=== PATIENT | male | born 1965 | race Caucasian/White ===

== ENCOUNTER 2024-07-09 10:36 | Emergency (ER) | payer BC, SELFPAY ==
--- NOTE | ~2024-07-09 | XR_ITS ---
EXAMINATION: XR chest 2V DATE: 07/09/2024 11:32 INDICATION: Cough. Right lower lobe crackles. TECHNIQUE: Frontal and lateral views of the chest were obtained. COMPARISON: None. FINDINGS: There is no pneumonia, pleural effusion, or pneumothorax. The heart size is normal. IMPRESSION: 1. No acute cardiopulmonary disease. Reviewed, dictated and finalized at location A.
--- NOTE | 2024-07-09 10:46 | ED.GENADULT ---
HPI - General Adult General Chief complaint: Upper Respiratory Infection Stated complaint: bronchitis Time Seen by Provider: 07/09/24 10:46 Source: patient Mode of arrival: ambulatory Limitations: no limitations History of Present Illness HPI narrative: 59-year-old male patient presents to [facility] with complaints of cold-like symptoms for the past 4 days. Patient states symptoms started with a low-grade fever of about 100, body aches, chills, cough and congestion. Patient states most of the symptoms have resolved but continues to have a cough. Patient states the cough was keeping him up at night however last night was able to get some sleep and thinks that the cough is improving. patient states he is starting to feel better and last tested himself for COVID yesterday which was negative. Patient states that he has been taking Robitussin for the cough. Patient states he has had pneumonia before in the past and is concerned that he might have pneumonia or bronchitis. Denies any current fevers for the last 48 hours. Denies any chest pain. Related Data Allergies Allergy/AdvReac Type Severity Reaction Status Date / Time Sulfa (Sulfonamide AdvReac Intermediate Gastrointestinal Verified 07/09/24 11:05 Antibiotics) Upset Review of Systems Review of Systems: CONSTITUTIONAL: Denies fever, chills, or sweats. EYES: Denies visual changes, redness, or discharge. ENT: Denies rhinorrhea, congestion, sore throat, or otalgia. CARDIOVASCULAR: Denies chest pain, palpitations, or edema. RESPIRATORY: Positive cough denies dyspnea. GASTROINTESTINAL: Denies abdominal pain, nausea, vomiting, or diarrhea. GENITOURINARY: Denies dysuria or hematuria. SKIN: Denies rash or itching. MUSCULOSKELETAL: Denies back pain, joint pain, or myalgia. NEUROLOGIC: Denies headache, numbness, or weakness. PSYCHIATRIC: Denies anxiety or depression. [facility] Past Medical History Medical History (Updated 07/09/24 @ 12:01 by AMY Avila) Bronchitis Pneumonia Right arm fracture Family History Family History Father Family history of cardiovascular disease Other Family history of hypercholesterolemia Social History Social History Smoking status: Never smoker Alcohol intake: never Substance use: never Substance use type: does not use Lack of Transportation: No Lack of Food: Never True Current Housing: I Have Housing Concerned About Future Housing: No Difficulty Paying Gas/Electric Bills: No Difficulty Paying for Meds: No Currently Unemployed: No Education: Bachelor's Degree Difficulty w/ Childcare or Family Care: No Living arrangements: with family Additional living arrangements comments: Occupation/Education: occupation Gender identity (if verbalized by the patient): Male Sexual Orientation (if Verbalized by the Patient): Straight or Heterosexual Spiritual care concerns: No Comments At the time of my signature I agree with nursing past medical history, surgical, social, and family history. There is no relevant family history pertinent to the presenting complaint. Exam Narrative: GENERAL: Well-appearing, well-nourished, and in no acute distress. HEAD: Normocephalic, atraumatic. EYES: PERRLA and EOMI. ENT: Nares clear, no rhinorrhea or epistaxis. Mucous membranes moist. posterior pharynx with no erythema, tonsillar enlargement, exudates or lesions present. Some postnasal drip is noted. NECK: Supple. No lymphadenopathy CHEST: Patient has some slight crackles noted to the right lower lobe on auscultation. No respiratory distress. HEART: Regular rate and rhythm. No murmur heard. Normal peripheral pulses. ABDOMEN: Soft, nontender, nondistended, normal active bowel sounds. EXTREMITIES: Normal range of motion. No edema. SKIN: Warm, dry, no rash. NEURO: No focal deficits. Alert and orient
[2024-07-09 10:54] VITALS: BP 130/79; PULSE 89; RESP 18; TEMP 36.4; O2SAT 98
== END 2024-07-09 12:03 | disposition home or self-care (01) ==
PROVIDERS: Emergency Provider Nurse Practitioner Family; PCP Family Medicine
DX: J06.9 Acute upper respiratory infection, unspecified (principal)
CPT/HCPCS: 71046; 99213; G0463

== ENCOUNTER 2025-01-13 00:50 | Day surgery (SDC) | payer BC, SELFPAY ==
[2025-01-03 14:29] VITALS: BMI 25.8
--- OUTSIDE RECORDS SUMMARY | 2025-01-13 00:52 | XMS_ITS | Clinical Summary ---
Author Organization [facility] [facility] Address [address] [place] [id number] Care Team Providers Care Senior Technical Specialist Name Role Phone No, Physician Primary Care Provider [phone] Allergies Active Allergy Reactions Criticality Noted Date Comments Sulfa (Sulfonamide Antibiotics) Medications tadalafiL (CIALIS) 5 mg tablet Take 1 tablet (5 mg total) by mouth daily 12/24/2022 Active ibuprofen 200 mg tab/cap Take 3 tablet/caps ule (600 mg total) by mouth every 6 (six) hours as needed for pain Active Active Problems No known active problems Medical History Medical History Date Comments Neuropathy Hematuria Family History Medical History Relation Name Comments Arthritis Father Heart disease Father Hypertension Father Arthritis Mother Heart disease Mother Hypertension Mother Hypertension Other Family history of Hypertension; Osteoporosis Other Relation Name Status Comments Father Alive Mother Alive Other Social History Tobacco Use Types Packs/Day Years Used Date Smoking Tobacco: Never Smokeless Tobacco: Never Tobacco Cessation:Counseling Given: Not Answered AUDIT-C Answer Date Recorded Q1: How often do you have a drink containing alc ohol? 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 Gender Identity Not on file Sexual Orientation Not on file Obstetrics History Last Filed Vital Signs Vital Sign Reading Time Taken Comments Blood Pressure 160/105 10/28/2023 8:58 AM FIELD ASSESSOR Pulse 76 10/28/2023 8:58 AM FIELD ASSESSOR Temperature - - Respiratory Rate - - Oxygen Saturation - - Inhaled Oxygen Concentration - - Weight 90.4 kg (199 lb 6.4 oz) 10/28/2023 8:58 A M FIELD ASSESSOR Height 185.4 cm (6' 1 ) 10/28/2023 8:58 AM FIELD ASSESSOR Body Mass Index 26.31 10/28/2023 8:58 AM FIELD ASSESSOR Plan of Treatment Health Maintenance Due Date Last Done Comments Colon Cancer Screening-Colonoscopy 1963 Depression Screening 1963 Hepatitis C Screening 1963 Prostate Cancer Screening-PSA 1963 Hepatitis B Screening 1981 Regular Well Visit/Exam 18-64 1981 Influenza Vaccine (#1) 2024 07/13/2019 DTaP/Tdap/Td Vaccine (2 - Td or Tdap) 07/25/2027 07/25/2017 Zoster Vaccine Completed 06/27/2019, 04/24/2019 Pneumococcal vaccine <65 Aged Out No longer eligible based on patient's age to complete this topic Insurance [employer] [place] [employer] [facility] Care Teams Senior Technical Specialist Relationship Specialty Start Date End Date No, Physician PCP - General 02/11/23
--- OUTSIDE RECORDS SUMMARY | 2025-01-13 00:52 | XMS_ITS | Clinical Summary ---
Author Organization [facility] Address [address] [place] [id number] Care Team Providers Care Stone Gluer Name Role Phone Unavailable Primary Care Provider Unavailabl e Social History Tobacco Use Types Packs/Day Years Used Date Smoking Tobacco: Never Assessed Sex and Gender Information Value Date Recorded Sex Assigned at Not on file Legal Sex Male 2:21 PM CDT Gender Identity Not on file Sexual Orientation Not on file Plan of Treatment Health Maintenance Due Date Last Done Comments DTAP/TDAP/TD VACCINES (1 - Tdap) 1982 COLORECTAL SCREENING 2008 Colorectal Cancer Screening 2008 FIT-DNA Q 3 years 2008 FIT/FOBT Q 1 year 2008 Flex Sig/CT Colonography Q 5 years 2008 ZOSTER VACCINE (1 of 2) 2013 INFLUENZA VACCINE (#1) 2024 RSV VACCINE (60+ or ) (1 - 1-dose 75+ series) 2038 PNEUMOCOCCAL VACCINE 0-49 YEARS Aged Out No longer eligible based on patient's age to complete this topic [facility]
--- OUTSIDE RECORDS SUMMARY | 2025-01-13 00:52 | XMS_ITS | Clinical Summary ---
Author Organization [facility] Address [address] [place] [address] Care Team Providers Care Health Care Recruiter Name Role Phone Oziel Carver MD Primary Care Provider [phone] Social History Tobacco Use Types Packs/Day Years Used Date Smoking Tobacco: Never Assessed Sex and Gender Information Value Date Recorded Sex Assigned at Not on file Legal Sex Male 9:16 AM CDT Gender Identity Not on file Sexual Orientation Not on file Plan of Treatment Health Maintenance Due Date Last Done Comments Colorectal Cancer Screening Colonoscopy (10 Years) 1963 Annual Physical 1966 Hepatitis C 1981 DTaP, Tdap and Td Vaccines ( 1 - Tdap) 1982 Zoster Vaccines (1 of 2) 2013 COVID-19 Vaccine ( - 2023-2 5 season) 2024 Influenza Adult (#1) 2024 RSV Immunization or 60+ Years (1 - 1-dose 75+ series) 2038 Meningococcal B Vaccine Aged Out No l onger eligible based on patient's age to complete this topic Meningococcal Vaccine Aged Out No steffi jannet eligible based on patient's age to complete this topic Pneumococcal Vaccine: Pediat rics (0 to 5 Years) and At-Risk Patients (6 to 64 Years) Aged Out No longer eligible b ased on patient's age to complete this topic RSV Immunizations Under 20 Months Aged Out No longer eligible based on patient's age to complete this topic Insurance [facility] Care Teams Health Care Recruiter Relationship Specialty Start Date End Date Oziel Carver MD [address] [place] [address] PCP - General FAMILY PRACTICE 07/21/19
--- OUTSIDE RECORDS SUMMARY | 2025-01-13 00:52 | XMS_ITS | Referral Summary ---
Author Organization [facility] [facility] Address [address] [place] [id number] Care Team Providers Care Bradder Name Role Phone No, Physician Primary Care Provider [phone] Allergies Active Allergy Reactions Criticality Noted Date Comments Sulfa (Sulfonamide Antibiotics) Medications tadalafiL (CIALIS) 5 mg tablet Take 1 tablet (5 mg total) by mouth daily 12/24/2022 Active ibuprofen 200 mg tab/cap Take 3 tablet/caps ule (600 mg total) by mouth every 6 (six) hours as needed for pain Active Active Problems No known active problems Social History Tobacco Use Types Packs/Day Years [...] on file Legal Sex Male 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 Gender Identity Not on file Sexual Orientation Not on file Last Filed Vital Signs Vital Sign Reading Time Taken Comments Blood Pressure 160/105 10/28/2023 8:58 AM BULLET CASTING OPERATOR Pulse 76 10/28/2023 8:58 AM BULLET CASTING OPERATOR Temperature - - Respiratory Rate - - Oxygen Saturation - - Inhaled Oxygen Concentration - - Weight 90.4 kg (199 lb 6.4 oz) 10/28/2023 8:58 A M BULLET CASTING OPERATOR Height 185.4 cm (6' 1 ) 10/28/2023 8:58 AM BULLET CASTING OPERATOR Body Mass Index 26.31 10/28/2023 8:58 AM BULLET CASTING OPERATOR Plan of Treatment Not on file Insurance [employer] Care Teams Bradder Relationship Specialty Start Date End Date No, Physician PCP - General 02/11/23
[2025-01-13 06:38] VITALS: BP 121/84; PULSE 81; RESP 18; TEMP 35.7; O2SAT 97
--- NOTE | 2025-01-13 07:01 | WPDANESEPPF ---
Anes - Initial Pre Proc Eval Procedure: Operation Date: 01/13/25 08:00 Proposed Procedures p Screening Colonoscopy - Maxx Jones MD Date/Time: 01/13/25 07:01 Surgeon: Maxx Jones MD Pre Op Diagnosis: screening colon Patient Data Age: 59 Gender: M Height: 1.83 m Weight: 86.8 kg Last Vital Signs Temp 96.2 F L 01/13/25 06:38 Pulse 81 01/13/25 06:38 Resp 18 01/13/25 06:38 BP 121/84 01/13/25 06:38 Pulse Ox 97 01/13/25 06:38 O2 Del Method Room Air 01/13/25 06:38 Allergies Allergy/AdvReac Type Severity Reaction Status Date / Time Sulfa (Sulfonamide AdvReac Intermediate Gastrointestinal Verified 01/13/25 06:50 Antibiotics) Upset Home Medications ?Medication ?Instructions ?Recorded ?Confirmed ?Type tadalafil 5 mg tablet 5 mg PO DAILY PRN sexual activity 03/23/23 01/03/25 Rx #90 tabs Patient hx anesthesia problems: none Family hx anesthesia problems: none Results Review: All pre-operative results and documents have been reviewed as part of the pre-operative evaluation. [facility] Past Medical History Medical History Right arm fracture Pneumonia Bronchitis Family History Family History Father Family history of cardiovascular disease Other Family history of hypercholesterolemia Social History Social History Smoking status: Never smoker Alcohol intake: never Substance use: never Substance use type: does not use Lack of Transportation: No Lack of Food: Never True Current Housing: I Have Housing Concerned About Future Housing: No Difficulty Paying Gas/Electric Bills: No Difficulty Paying for Meds: No Currently Unemployed: No Education: Bachelor's Degree Difficulty w/ Childcare or Family Care: No Living arrangements: with family Additional living arrangements comments: with Occupation/Education: occupation Gender identity (if verbalized by the patient): Male Sexual Orientation (if Verbalized by the Patient): Straight or Heterosexual Spiritual care concerns: No Anes - Eval Final PreProcedure Day of Procedure 01/13/25 07:01 Patient weight: normal Lungs: normal air movement Airway: Mallampati scale class II Neurological: alert and oriented Last oral intake: >/= 8 hours ASA classification: I Emergent: no Anesthetic plan: proceed Anesthesia type and monitoring: general GIVS and standard monitoring Results Review: All pre-operative results and documents have been reviewed as part of the pre-operative evaluation. Informed Consent: The patient's anesthetic plan and its attendant risks and benefits were discussed with the patient/family/POA. Questions were solicited and answers provided to the satisfaction of the patient/family/POA.
[2025-01-13] MEDS: LACTATED RINGERS 1,000 ML 150 ML IV CONT (07:02)
--- NOTE | 2025-01-13 07:29 | WPDANESEPPF ---
Anes - Initial Pre Proc Eval Procedure: Operation Date: 01/13/25 08:00 Proposed Procedures p Screening Colonoscopy - Maxx Jones MD Date/Time: 01/13/25 07:29 Surgeon: Maxx Jones MD Pre Op Diagnosis: screening colon Patient Data Age: 59 Gender: M Height: 1.83 m Weight: 86.8 kg Last Vital Signs Temp 96.2 F L 01/13/25 06:38 Pulse 81 01/13/25 06:38 Resp 18 01/13/25 06:38 BP 121/84 01/13/25 06:38 Pulse Ox 97 01/13/25 06:38 O2 Del Method Room Air 01/13/25 06:38 Allergies Allergy/AdvReac Type Severity Reaction Status Date / Time Sulfa (Sulfonamide AdvReac Intermediate Gastrointestinal Verified 01/13/25 06:50 Antibiotics) Upset Home Medications ?Medication ?Instructions ?Recorded ?Confirmed ?Type tadalafil 5 mg tablet 5 mg PO DAILY PRN sexual activity 03/23/23 01/03/25 Rx #90 tabs Patient hx anesthesia problems: none Family hx anesthesia problems: none Results Review: All pre-operative results and documents have been reviewed as part of the pre-operative evaluation. [facility] Past Medical History Medical History Right arm fracture Pneumonia Bronchitis Family History Family History Father Family history of cardiovascular disease Other Family history of hypercholesterolemia Social History Social History Smoking status: Never smoker Alcohol intake: never Substance use: never Substance use type: does not use Lack of Transportation: No Lack of Food: Never True Current Housing: I Have Housing Concerned About Future Housing: No Difficulty Paying Gas/Electric Bills: No Difficulty Paying for Meds: No Currently Unemployed: No Education: Bachelor's Degree Difficulty w/ Childcare or Family Care: No Living arrangements: with family Additional living arrangements comments: with Occupation/Education: occupation Gender identity (if verbalized by the patient): Male Sexual Orientation (if Verbalized by the Patient): Straight or Heterosexual Spiritual care concerns: No Anes - Eval Final PreProcedure Day of Procedure 01/13/25 07:29 Patient weight: normal Lungs: normal air movement Airway: Mallampati scale and special considerations (Upper incisors w small chips. ) Neurological: alert and oriented Last oral intake: >/= 8 hours ASA classification: I Emergent: no Anesthetic plan: proceed Anesthesia type and monitoring: general GIVS and standard monitoring Results Review: All pre-operative results and documents have been reviewed as part of the pre-operative evaluation. Active cyclist, no cp or sob. Informed Consent: The patient's anesthetic plan and its attendant risks and benefits were discussed with the patient/family/POA. Questions were solicited and answers provided to the satisfaction of the patient/family/POA.
--- NOTE | 2025-01-13 07:53 | PM.HPGS ---
History of Present Illness History of Present Illness Consent: Risks, benefits, and alternatives have been discussed and questions answered. Patient agrees to proceed with procedure. Chief complaint: screening colon Narrative: Vicente Telles is a 59 year old male here for screening colonoscopy, last one 2013 Review of Systems Review of Systems: All systems reviewed & are unremarkable except as noted in HPI and below PMFSH Past Medical History Medical History (Updated 01/13/25 @ 07:53 by Maxx Jones MD) Colon cancer screening Right arm fracture Pneumonia Bronchitis Family History Family History Father Family history of cardiovascular disease Other Family history of hypercholesterolemia Social History Social History Smoking status: Never smoker Alcohol intake: never Substance use: never Substance use type: does not use Lack of Transportation: No Lack of Food: Never True Current Housing: I Have Housing Concerned About Future Housing: No Difficulty Paying Gas/Electric Bills: No Difficulty Paying for Meds: No Currently Unemployed: No Education: Bachelor's Degree Difficulty w/ Childcare or Family Care: No Living arrangements: with family Additional living arrangements comments: with Occupation/Education: occupation Gender identity (if verbalized by the patient): Male Sexual Orientation (if Verbalized by the Patient): Straight or Heterosexual Spiritual care concerns: No Meds Home Medications and Allergies Home Medications ?Medication ?Instructions ?Recorded ?Confirmed ?Type tadalafil 5 mg tablet 5 mg PO DAILY PRN sexual activity 03/23/23 01/03/25 Rx #90 tabs Allergies Allergy/AdvReac Type Severity Reaction Status Date / Time Sulfa (Sulfonamide AdvReac Intermediate Gastrointestinal Verified 01/13/25 06:50 Antibiotics) Upset Vital Signs Vital Signs - 24 hr 01/13/25 06:38 Temperature 96.2 F L Pulse Rate 81 Respiratory Rate 18 Blood Pressure 121/84 Pulse Oximetry 97 Oxygen Delivery Room Air Exam Const: General: comfortable and no acute distress HENMT: Face/Nose/Sinus: Normal nares present Eyes: General: appearance normal, both eyes and all related structures Neck: Neck: no JVD Resp: Auscultation: clear to auscultation bilaterally Cardio: Rate: regular rate Rhythm: regular rhythm GI: Inspection: non-distended GI Palp: Yes Soft to palpation Skin: General skin exam: normal color Neuro: Speech: normal speech Extrem: General: normal to inspection Psych: Mental Status: mental status grossly normal Assessment and Plan Assessment and plan (1) Colon cancer screening: Code(s): Z12.11 - Encounter for screening for malignant neoplasm of colon Status: Acute Assessment and Plan: colonoscopy
[2025-01-13 08:09] VITALS: BP 103/69; PULSE 73; RESP 15; O2SAT 98
[2025-01-13 08:19] VITALS: BP 112/76; PULSE 77; RESP 20; O2SAT 99
[2025-01-13 08:29] VITALS: BP 108/72; PULSE 80; RESP 20; O2SAT 99
== END 2025-01-13 08:42 | disposition home or self-care (01) ==
PROVIDERS: PCP Family Medicine; Visit Provider Internal Medicine Gastroenterology
PROC: 0DJD8ZZ Inspection of Lower Intestinal Tract, Via Natural or Artificial Opening Endoscopic (ICD-10-PCS; CPT 45378; principal; 2025-01-13 08:00)
DX: Z12.11 Encounter for screening for malignant neoplasm of colon (principal); D12.3 Benign neoplasm of transverse colon; K57.30 Diverticulosis of large intestine without perforation or abscess without bleeding; K64.8 Other hemorrhoids
CPT/HCPCS: 45380; 88305; J2003; J2704; J7120